=== PATIENT | female | born 1990 | race Two or more races ===

== ENCOUNTER 2018-12-14 20:58 | Emergency (ER) | payer BC ==
[~2018-12-14] VITALS: Ht 170.2 cm; Wt 66.7 kg
--- NOTE | 2018-12-14 21:27 | NUR ---
Pt ambulates to ER with c/o right rib pain x 3 days, however now radiates to rt lower back since last night. Denies trauma/injury to area. Denies N/V/D. Appears in no apparent distress.
--- NOTE | 2018-12-14 21:29 | NUR ---
Dr. Yusuf ADAMSON MD at bedside for MSE.
--- NOTE | 2018-12-14 21:30 | NUR ---
radiological technician at bedside.
[2018-12-14 22:20] LABS: *BILIRUBIN,URIN NEGATIVE (NEGATIVE); *BLOOD, URINE NEGATIVE (NEGATIVE); *CLARITY,URINE CLEAR (CLEAR); *COLOR,URINE LIGHT YELLOW (YELLOW); *KETONES,URINE NEGATIVE (NEGATIVE); *UROBILINOGEN,URINE 0.2 E.U./dl (NORMAL); LEUKOCYTE ESTERASE ,URINE TRACE (NEGATIVE); NITRITE, URINE NEGATIVE (NEGATIVE); PH,URINE 6.5 (5.0-8.0); UGLUCOSE NEGATIVE (NEGATIVE)
[2018-12-14 22:30] LABS: *URINE HCG, QUAL NEGATIVE (NEGATIVE)
[2018-12-14 22:32] LABS: RBC,URINE 0-3 /HPF (0-3)
[2018-12-14 22:33] LABS: BACTERIA,URINE MODERATE /HPF (NONE SEEN); SQUAMOUS EPITHELIAL CELL,UR MODERATE /HPF (NONE SEEN)
[2018-12-14] MEDS ORDERED: IBUPROFEN 800 MG TABLET PO ONE (23:30)
[2018-12-14 23:52] LABS: BASOPHILS % (AUTO) 0.4 % (0.0-2.0); EOSINOPHILS # (AUTO) 0.1 K/uL (0.0-0.7); EOSINOPHILS % (AUTO) 1.1 % (0.0-7.0); HEMATOCRIT 40.3 % (31.2-41.9); HEMOGLOBIN 13.7 g/dL (10.9-14.3); LYMPHOCYTES # (AUTO) 2.9 K/uL (20.0-40.0); MEAN CORPUSCULAR HEMOGLOBIN 31.4 uug (24.7-32.8); MEAN CORPUSCULAR HGB CONC 34 g/dL (32.3-35.6); MEAN CORPUSCULAR VOLUME 92.1 fL (75.5-95.3); MONOCYTES # (AUTO) 0.7 K/uL (2.0-10.0); MONOCYTES % (AUTO) 8.4 % (0.0-11.0); NEUTROPHILS % (AUTO) 52.1 % (38.5-71.5); PLATELET COUNT (AUTO) 188 K/uL (179-408); RED BLOOD CELL COUNT(AUTO) 4.37 MIL/uL (3.63-4.92); WHITE BLOOD COUNT (AUTO) 7.8 K/uL (3.8-11.8)
[2018-12-15] MEDS ORDERED: IBUPROFEN 800 MG TABLET ONE
[2018-12-15 00:02] LABS: CARBON DIOXIDE 28 mmol/L (21-32); CHLORIDE 105 mmol/L (98-107); CREATININE 0.7 mg/dL (0.6-1.3); GLUCOSE 104 mg/dL (74-106); POTASSIUM 3.9 mmol/L (3.5-5.1); UREA NITROGEN, BLOOD 6 mg/dL (7-18)
[2018-12-15 00:08] LABS: ALANINE AMINOTRANSFERASE 23 U/L (14-59); ALKALINE PHOSPHATASE 54 U/L (50-136); ASPARTATE AMINOTRANSFERASE 7 U/L (15-37); BILIRUBIN,DIRECT 0.1 mg/dL (0.0-0.2); BILIRUBIN,TOTAL 0.6 mg/dL (0.2-1.0); TOTAL PROTEIN, SERUM 7.2 g/dL (6.4-8.2)
[2018-12-15 00:25] LABS: LIPASE 198 U/L (73-393)
--- NOTE | 2018-12-15 01:18 | NUR ---
Pt went down to radiology dept for CT scan.
--- NOTE | 2018-12-15 01:28 | NUR ---
Pt back from radiology dept, placed back in room 01B.
--- NOTE | 2018-12-15 02:50 | NUR ---
Patient discharged to home in stable conditon. Written and verbal after care instructions given. Patient verbalizes understanding of instructions. Pt ambulated out of ER in stable gait. All belongings w pt. VSS. NAD noted.
[2018-12-15 02:52] VITALS: BP 144/81
== END 2018-12-15 02:52 | disposition home or self-care (01) ==
LOC: ER 21:01
DX: R10.11 Right upper quadrant pain (principal)
CPT/HCPCS: 36415; 76705; 83690; 84703; 85025; A4663